=== PATIENT | male | born 1960 | race Caucasian/White ===

== ENCOUNTER 2022-09-18 06:47 | Day surgery (SDC) | payer OTHER ==
[~2022-09-18 06:47] MED LIST: ATORVASTATIN CA20 MG PO; CARBAMAZEPIN200 MG PO; DIPHENHYDRAMINE50 M3; DOXEPIN HCL50 MG PO; GABAPENTIN300 M2; HUMULIN 70/30 SC; LEVOTHYROXIN25 MC1 PO; LISINOPRIL20 M1 PO; MAXZIDE-25MG1 COMBO PO; METFORMIN500 M2 PO; NORVASC PO; PAIN RELIEF325 MG PO; PROTONIX40 M2 PO; VITAMIN D3
[2022-09-18] MEDS ORDERED: DOCUSATE CALCI240 MG PO (09:33)
[2022-09-18 09:46] VITALS: BP 141/87
== END 2022-09-18 10:20 | disposition designated cancer center or children's hospital (05) | DRG 395 ==
LOC: ENDO 06:47 → ORM 07:00 → ENDO 09:05 → ORM 09:30 → ENDO 09:30
PROVIDERS: ATTEND Surgery
PROC: 0DBE8ZX Excision of Large Intestine, Via Natural or Artificial Opening Endoscopic, Diagnostic (ICD-10-PCS; principal; 2022-09-18)
DX: K64.8 Other hemorrhoids (principal); K64.4 Residual hemorrhoidal skin tags; K63.89 Other specified diseases of intestine; K59.00 Constipation, unspecified; I10 Essential (primary) hypertension